=== PATIENT | male | born 1985 | race Caucasian/White ===

== ENCOUNTER 2019-03-18 13:43 | Emergency (ER) | payer SELFPAY ==
[2019-03-18] MEDS ORDERED: Sodium Chloride 0.9% 10 ML Syringe FLUSH PRN (14:10)
--- NOTE | 2019-03-18 14:23 | EDM.PDOC ---
ED HPI GENERAL MEDICAL PROBLEM - General Chief Complaint: Chest Pain Stated Complaint: CHEST PAIN/ LEFT ARM PAIN FOR 4 DAYS Time Seen by Provider: 03/18/19 14:03 Source of Information: Reports: Patient, RN Notes Reviewed - History of Present Illness INITIAL COMMENTS - FREE TEXT/NARRATIVE: 33-year-old male has been having chest pain off and on for about the past 5 days. This is become more severe and frequent yesterday and today. As this is an anterior pressure, tightness and heaviness times will radiate to the right shoulder and right arm and at other times to the left shoulder and left arm. He works at [employer] and with exertion and has been mildly more short of breath than typical. Does smoke, has a chronic cough but not coughing any more than usual. Some fever or chills. No history for hypertension diabetes or coronary artery disease. Chest Pain Score (Numeric/FACES): 3 - Related Data Allergies Allergy/AdvReac Type Severity Reaction Status Date / Time No Known Allergies Allergy Verified 08/14/14 09:17 Home Meds: Home Meds . [No Known Home Meds] 03/18/19 [History] Past Medical History - Past Health History Medical/Surgical History: Denies Medical/Surgical History - Past Surgical History HEENT Surgical History: Reports: Tonsillectomy Social & Family History - Family History Family Medical History: Noncontributory - Tobacco Use Smoking Status *Q: Current Every Day Smoker Years of Tobacco use: 20 Packs/Tins Daily: 0.7 - Caffeine Use Caffeine Use: Reports: Coffee, Energy Drinks, Soda, Tea - Recreational Drug Use Recreational Drug Use: No ED ROS GENERAL - Review of Systems Review Of Systems: See Below Constitutional: Denies: Fever, Chills, Diaphoresis HEENT: Denies: Throat Pain Respiratory: Reports: Shortness of Breath, Cough. Denies: Pleuritic Chest Pain (Exertional), Sputum (chronic) Cardiovascular: Reports: Chest Pain GI/Abdominal: Denies: Abdominal Pain, Nausea, Vomiting Musculoskeletal: Reports: Shoulder Pain, Arm Pain Skin: Denies: Rash Neurological: Reports: Numbness (Occasional left arm and right arm) ED EXAM, GENERAL - Physical Exam Exam: See Below General Appearance: Alert, No Apparent Distress Eye Exam: Bilateral Eye: PERRL Throat/Mouth: Normal Inspection, Normal Oropharynx Head: Atraumatic. No: Facial Swelling Neck: Supple, Full Range of Motion Respiratory/Chest: No Respiratory Distress, Lungs Clear, Normal Breath Sounds Cardiovascular: Regular Rate, Rhythm GI/Abdominal: Soft, Non-Tender Extremities: Normal Inspection, Normal Range of Motion. No: Pedal Edema, Leg Pain Neurological: Alert, Oriented, No Motor/Sensory Deficits Skin Exam: Warm, Dry, Normal Color EKG INTERPRETATION EKG Date: 03/18/19 Rhythm: Other (Sinus bradycardia at time of EKG, rate 48) [place]: Normal P-Wave: Present QRS: Normal ST-T: Normal Course - Vital Signs Last Recorded V/S: Last Vital Signs Temp 98.5 F 03/18/19 13:54 Pulse 71 03/18/19 13:54 Resp 20 03/18/19 13:54 BP 157/89 H 03/18/19 13:54 Pulse Ox 100 03/18/19 13:54 - Orders/Labs/Meds Orders: Active Orders 24 hr Category Date Time Status Peripheral IV Care [RC] . DIRECTED Care 03/18/19 14:11 Active Sodium Chloride 0.9% [Saline Flush] Med 03/18/19 14:10 Active 10 ml FLUSH ASDIRECTED PRN Peripheral IV Insertion Adult [OM.PC] Stat Oth 03/18/19 14:11 Ordered Medication Orders Sodium Chloride (Saline Flush) 10 ml FLUSH ASDIRECTED PRN PRN Reason: Keep Vein Open Last Admin: 03/18/19 14:05 Dose: 10 ml Labs: Laboratory Tests 03/18/19 03/18/19 Range/Units 14:25 14:25 WBC 9.49 H (4.23-9.07) K/mm3 RBC 5.46 (4.63-6.08) M/mm3 Hgb 15.8 (13.7-17.5) gm/L Hct 47.1 (40.1-51.0) % MCV 86.3 (79.0-92.2) fl MCH 28.9 (25.7-32.2) pg MCHC 33.5 (32.2-35.5) g/dl RDW Std Deviation 42.5 (35.1-43.9) fL Plt Count 206 (163-337) K/mm3 MPV 10.9 (9.4-12.3) fl Neut % (Auto) 67.2 (34.0-67.9) % Lymph % (Auto) 22.2 (21.8-53.1) % [place] % (Auto) 8.2 (5.3-12.2) % Eos % (Auto) 2.0 (0.8-7.0) Baso % (Auto) 0.3 (0.1-1.2) % Neut # (Auto) 6.37 H (1.78-5.38) K/mm3 Lymph # (Auto) 2.11 (1.32-3.57) K/mm3 [place] # (Auto) 0.78 (0.30-0.82) K/mm3 Eos # (Auto) 0.19 (0.04-0.54) K/mm3 Baso # (Auto) 0.03 (0.01-0.08) K/mm3 Sodium 142 (136-145) mEq/L Potassium 3.9 (3.5-5.1) mEq/L Chloride 104 (98-107) mEq/L Carbon Dioxide 28 (21-32) mEq/L Anion Gap 13.9 (5-15) BUN 18 (7-18) mg/dL Creatinine 1.1 (0.7-1.3) mg/dL Est Cr Clr Drug Dosing 71.79 mL/min Estimated GFR (MDRD) > 60 (>60) mL/min BUN/Creatinine Ratio 16.4 (14-18) Glucose 95 (74-106) mg/dL Calcium 9.4 (8.5-10.1) mg/dL Total Bilirubin 0.2 (0.2-1.0) mg/dL AST 24 (15-37) U/L ALT 29 (16-63) U/L Alkaline Phosphatase 90 (46-116) U/L Troponin I < 0.017 (0.00-0.056) ng/mL Total Protein 7.8 (6.4-8.2) g/dl Albumin 4.2 (3.4-5.0) g/dl Globulin 3.6 gm/dL Albumin/Globulin Ratio 1.2 (1-2) TSH 3rd Generation 2.787 (0.358-3.74) uIU/mL Meds: Medications Generic Name Dose Route Start Last Admin Trade Name Freq PRN Reason Stop Dose Admin Sodium Chloride 10 ml 03/18/19 14:10 03/18/19 14:05 Saline Flush FLUSH 10 ml ASDIRECTED PRN Administration Keep Vein Open - Re-Assessments/Exams Free Text/Narrative Re-Assessment/Exam: 03/18/19 15:21 Your heart and lungs checked out well today. Try hard to stop smoking. Try eat a healthy diet. Avoid heavy lifting for the remainder of this week as best you can. Follow-up clinic as needed, return to ED as needed if symptoms worsening in any way. Departure - Departure Time of Disposition: 15:22 Disposition: Home, Self-Care 01 Condition: Fair Clinical Impression: Atypical chest pain, Chest wall pain Referrals: PCP,None [Primary Care Provider] - Forms: ED Department Discharge - My Orders Last 24 Hours: My Active Orders 03/18/19 14:10 Sodium Chloride 0.9% [Saline Flush] 10 ml FLUSH ASDIRECTED PRN 03/18/19 14:11 Peripheral IV Care [RC] . DIRECTED Peripheral IV Insertion Adult [OM.PC] Stat - Assessment/Plan Last 24 Hours: My Active Orders 03/18/19 14:10 Sodium Chloride 0.9% [Saline Flush] 10 ml FLUSH ASDIRECTED PRN 03/18/19 14:11 Peripheral IV Care [RC] . DIRECTED Peripheral IV Insertion Adult [OM.PC] Stat
--- NOTE | 2019-03-18 14:41 | CR ---
Chest: Portable view of the chest was obtained. Comparison: No prior chest x-ray. Heart size and mediastinum are normal. Lungs are clear with no acute parenchymal change. Bony structures are unremarkable. Metallic BB is projected within the right axillary region. Impression: 1. Metallic BB as noted above. Nothing acute is seen. Diagnostic code #2
[2019-03-18 15:49] VITALS: BP 128/80
== END 2019-03-18 15:40 | disposition home or self-care (01) ==
LOC: JD.ED 13:43
DX: R07.89 Other chest pain (principal); F17.210 Nicotine dependence, cigarettes, uncomplicated
CPT/HCPCS: 36415; 71045; 71045-26; 80053; 84443; 84484; 85025; 93005; 93010; 99284; 99285-25

== ENCOUNTER 2020-01-22 18:28 | Emergency (ER) | payer SELFPAY ==
[2020-01-22 19:49] VITALS: BP 132/77; PULSE 87
[2020-01-22] MEDS ORDERED: Albuterol/Ipratropium 3.0-0.5 MG/3 ML Neb Soln NEB ONE (20:28)
--- NOTE | 2020-01-22 20:38 | EDM.PDOC ---
ED HPI GENERAL MEDICAL PROBLEM - General Chief Complaint: Respiratory Problem Stated Complaint: HEADACHE/ CHEST CONGESTION Time Seen by Provider: 01/22/20 20:00 Source of Information: Reports: Patient History Limitations: Reports: No Limitations - History of Present Illness INITIAL COMMENTS - FREE TEXT/NARRATIVE: This is a 34-year-old male. Onset with coughing and chest congestion and fever about 2 days ago. He says he has coughing fits where he cannot stop coughing and now his chest is really sore whenever he coughs or moves. He states he has had a fever though has not been documented. He indicates that his joints hurt. He apparently coughed up some dark blood one time and he coughed so hard that he will vomit. He has pain everywhere and he has a mild headache as well. He did not get a flu shot. He denies sore throat. He has had no nausea. He has been drinking water though not much of it. Chest Pain Score (Numeric/FACES): 9 Headache Pain Score (Numeric/FACES): 8 - Related Data Allergies Allergy/AdvReac Type Severity Reaction Status Date / Time No Known Allergies Allergy Verified 01/22/20 19:49 Home Meds: Home Meds . [No Known Home Meds] 03/18/19 [History] Past Medical History - Past Health History Medical/Surgical History: Denies Medical/Surgical History - Past Surgical History HEENT Surgical History: Reports: Tonsillectomy Social & Family History - Family History Family Medical History: Noncontributory - Tobacco Use Smoking Status *Q: Current Every Day Smoker Years of Tobacco use: 10 Packs/Tins Daily: 0.5 - Caffeine Use Caffeine Use: Reports: Coffee ED ROS GENERAL - Review of Systems Review Of Systems: See Below Constitutional: Reports: Fever, Chills, Malaise, Fatigue HEENT: Denies: Ear Pain, Rhinitis, Sinus Problem, Throat Pain, Throat Swelling Respiratory: Reports: Cough. Denies: Shortness of Breath, Wheezing Cardiovascular: Reports: Other (His ribs and chest are hurting from coughing) GI/Abdominal: Denies: Abdominal Pain, Diarrhea, Nausea, Vomiting Musculoskeletal: Reports: Other (Myalgias and arthralgias) Skin: Reports: No Symptoms Neurological: Reports: Headache. Denies: Trouble Speaking, Difficulty Walking Psychiatric: Reports: No Symptoms Hematologic/Lymphatic: Reports: No Symptoms ED EXAM, GENERAL - Physical Exam Exam: See Below Exam Limited By: No Limitations General Appearance: Alert, WD/WN, No Apparent Distress Eye Exam: Bilateral Eye: Normal Inspection Ears: Normal External Exam, Normal Canal, Normal TMs Nose: Normal Inspection. No: Nasal Drainage Throat/Mouth: Normal Inspection, Normal Lips, Normal Oropharynx, Normal Voice, No Airway Compromise Head: Normocephalic Neck: Supple, Non-Tender Respiratory/Chest: No Respiratory Distress, Lungs Clear, Normal Breath Sounds. No: Crackles, Rales, Rhonchi, Wheezing Cardiovascular: Regular Rate, Rhythm, No Murmur GI/Abdominal: Soft, Non-Tender Back Exam: Full Range of Motion, Other (Complains of his back aching) Extremities: Normal Inspection, Normal Range of Motion, Other (He states multiple joints hurt especially his hips) Neurological: Alert, Oriented Psychiatric: Normal Affect, Normal Mood Skin Exam: Warm, Dry Course - Vital Signs Last Recorded V/S: Last Vital Signs Temp 100.2 F 01/22/20 19:45 Pulse 87 01/22/20 19:45 Resp 18 01/22/20 19:45 BP 132/77 01/22/20 19:45 Pulse Ox 91 L 01/22/20 20:28 - Orders/Labs/Meds Orders: Active Orders 24 hr Category Date Time Status RT Aerosol Therapy [RC] ASDIRECTED Care 01/22/20 20:28 Active Chest 2V [CR] Stat Exams 01/22/20 20:27 Taken Labs: Laboratory Tests 01/22/20 01/22/20 Range/Units 20:37 20:37 WBC 6.43 (4.23-9.07) K/mm3 RBC 5.35 (4.63-6.08) M/mm3 Hgb 15.3 (13.7-17.5) gm/dl Hct 46.1 (40.1-51.0) % MCV 86.2 (79.0-92.2) fl MCH 28.6 (25.7-32.2) pg MCHC 33.2 (32.2-35.5) g/dl RDW Std Deviation 42.2 (35.1-43.9) fL Plt Count 149 L (163-337) K/mm3 MPV 11.4 (9.4-12.3) fl Neut % (Auto) 82.1 H (34.0-67.9) % Lymph % (Auto) 8.6 L (21.8-53.1) % [place] % (Auto) 8.6 (5.3-12.2) % Eos % (Auto) 0.3 L (0.8-7.0) Baso % (Auto) 0.2 (0.1-1.2) % Neut # (Auto) 5.29 (1.78-5.38) K/mm3 Lymph # (Auto) 0.55 L (1.32-3.57) K/mm3 [place] # (Auto) 0.55 (0.30-0.82) K/mm3 Eos # (Auto) 0.02 L (0.04-0.54) K/mm3 Baso # (Auto) 0.01 (0.01-0.08) K/mm3 Manual Slide Review Abnormal smear Sodium 141 (136-145) mEq/L Potassium 3.7 (3.5-5.1) mEq/L Chloride 103 (98-107) mEq/L Carbon Dioxide 23 (21-32) mEq/L Anion Gap 18.7 H (5-15) BUN 14 (7-18) mg/dL Creatinine 1.0 (0.7-1.3) mg/dL Est Cr Clr Drug Dosing 81.65 mL/min Estimated GFR (MDRD) > 60 (>60) mL/min BUN/Creatinine Ratio 14.0 (14-18) Glucose 100 (74-106) mg/dL Calcium 8.8 (8.5-10.1) mg/dL Total Bilirubin 0.3 (0.2-1.0) mg/dL AST 23 (15-37) U/L ALT 27 (16-63) U/L Alkaline Phosphatase 70 (46-116) U/L Total Protein 7.6 (6.4-8.2) g/dl Albumin 4.0 (3.4-5.0) g/dl Globulin 3.6 gm/dL Albumin/Globulin Ratio 1.1 (1-2) Meds: Medications Discontinued Medications Generic Name Dose Route Start Last Admin Trade Name Freq PRN Reason Stop Dose Admin Albuterol/Ipratropium 3 ml 01/22/20 20:28 01/22/20 20:42 Duoneb 3.0-0.5 Mg/3 Ml NEB 01/22/20 20:29 3 ml ONETIME ONE Administration - Re-Assessments/Exams Free Text/Narrative Re-Assessment/Exam: 01/22/20 22:51 Poke to the patient regarding his test results. Flu test was negative. His chest x-ray did not show any acute infiltrates. His blood work was essentially normal but he was slightly dry. The breathing treatment did seem to help his cough and breathing. I am going to provide a prescription for an inhaler as well as medicine for his cough. I gave him specific instructions to drink more fluids especially water at home to stay well-hydrated and I will give him a note for work for the next few days until he starts to feel better. I also encouraged him to take Tylenol and ibuprofen as needed for the aches and the pains and the low-grade fever. Departure - Departure Time of Disposition: 22:52 Disposition: Home, Self-Care 01 Condition: Fair Clinical Impression: Viral syndrome, Acute febrile illness, Cough - Discharge Information *PRESCRIPTION DRUG MONITORING PROGRAM REVIEWED*: Not Applicable *COPY OF PRESCRIPTION DRUG MONITORING REPORT IN PATIENT EVA: Not Applicable Instructions: Upper Respiratory Infection, Adult, [id number], Fever, Adult, [id number] Referrals: PCP,None [Primary Care Provider] - Forms: ED Department Discharge, ED Return to Work/School Form Additional Instructions: Home, sleep and rest as much as possible, take the medication as needed for your cough, use the inhaler when you feel like you are having a hard time breathing or if you hear any wheezing, take Tylenol and ibuprofen faithfully to help with the fever, you must drink lots of fluids like 6 to 8 glasses every day in order to stay hydrated so your body can fight the infection, return to the ER as needed and follow-up with your family doctor later this week for recheck. Sepsis Event Note - Evaluation Sepsis Screening Result: No Definite Risk - Focused Exam Vital Signs: Vital Signs Temp Pulse Resp BP Pulse Ox Pulse Ox 01/22/20 20:28 91 L 01/22/20 19:45 100.2 F 87 18 132/77 95 Date Exam was Performed: 01/22/20 Time Exam was Performed: 22:51 - My Orders Last 24 Hours: My Active Orders 01/22/20 20:27 Chest 2V [CR] Stat 01/22/20 20:28 RT Aerosol Therapy [RC] ASDIRECTED - Assessment/Plan Last 24 Hours: My Active Orders 01/22/20 20:27 Chest 2V [CR] Stat 01/22/20 20:28 RT Aerosol Therapy [RC] ASDIRECTED
--- NOTE | 2020-01-24 13:51 | CR ---
Chest: Two views of the chest were obtained. Comparison: Prior chest x-ray of 03/18/19. Stable nodules are noted within the chest. Lungs show no acute parenchymal change. Bony structures are within normal limits. Heart size and mediastinum are within normal limits. Impression: 1. Nodules within the chest believed to be stable and most likely representing granulomas. 2. Nothing acute is appreciated on two-view chest x-ray. Diagnostic code #2 Study was dictated in [place] Standard Time
== END 2020-01-22 23:09 | disposition home or self-care (01) ==
LOC: JD.ED 18:28
DX: B34.9 Viral infection, unspecified (principal); F17.210 Nicotine dependence, cigarettes, uncomplicated
CPT/HCPCS: 36415; 71046; 71046-26; 80053; 85025; 87804; 94640; 99283; 99284-25; J7620-GY

== ENCOUNTER 2020-03-21 03:32 | Emergency (ER) | payer SELFPAY ==
[2020-03-21 03:44] VITALS: BP 141/81; PULSE 79
--- NOTE | 2020-03-21 03:50 | EDM.PDOC ---
ED HPI GENERAL MEDICAL PROBLEM - General Chief Complaint: Lower Extremity Injury/Pain Stated Complaint: LEG AND HIP PAIN Time Seen by Provider: 03/21/20 03:38 Source of Information: Reports: Patient History Limitations: Reports: No Limitations - History of Present Illness INITIAL COMMENTS - FREE TEXT/NARRATIVE: TRIAGE NOTE -- pt c/o left sided hip pain radiating down the left leg. pt reports pain started Saturday, he went skateboarding on Saturday and fell a few times. pt walks into the ER with a limp. [ End ] As above. Patient fell onto his left hip area 2 days ago while skateboarding. He has had swelling lateral left hip as well as lumbar pain radiating to his left lower extremity. No treatment prior to arrival. Has not taken any medication or other measure to moderate symptoms. No risk factors other than cigarette smoking and skateboarding. There is been no fever respiratory symptoms or any other symptom of acute medical illness otherwise. Left Hip Pain Score (Numeric/FACES): 7 - Related Data Allergies Allergy/AdvReac Type Severity Reaction Status Date / Time No Known Allergies Allergy Verified 03/21/20 03:44 Home Meds: Home Meds . [No Known Home Meds] 03/18/19 [History] Past Medical History - Past Health History Medical/Surgical History: Denies Medical/Surgical History - Past Surgical History HEENT Surgical History: Reports: Tonsillectomy Social & Family History - Family History Family Medical History: Noncontributory - Tobacco Use Smoking Status *Q: Current Every Day Smoker - Caffeine Use Caffeine Use: Reports: Coffee Review of Systems - Review of Systems Review Of Systems: Comprehensive ROS is negative, except as noted in HPI. ED EXAM, GENERAL - Physical Exam Exam: See Below Exam Limited By: No Limitations General Appearance: Alert, WD/WN, No Apparent Distress Eye Exam: Bilateral Eye: EOMI, PERRL Ears: Normal External Exam Nose: Normal Inspection Throat/Mouth: Normal Inspection Head: Atraumatic, Normocephalic Neck: Supple, Non-Tender Respiratory/Chest: No Respiratory Distress, Lungs Clear, Normal Breath Sounds Cardiovascular: Regular Rate, Rhythm GI/Abdominal: Soft, Non-Tender Back Exam: Paraspinal Tenderness Extremities: Normal Inspection, Non-Tender, No Pedal Edema, Other (Quite thin not overtly wasted) Neurological: Alert, Oriented, Normal Cognition, No Motor/Sensory Deficits Psychiatric: Normal Affect, Normal Mood Skin Exam: Warm, Dry Course - Vital Signs Last Recorded V/S: Last Vital Signs Temp 36.2 C 03/21/20 03:39 Pulse 79 03/21/20 03:39 Resp 16 03/21/20 03:39 BP 141/81 H 03/21/20 03:39 Pulse Ox 97 03/21/20 03:39 - Orders/Labs/Meds Orders: Active Orders 24 hr Category Date Time Status Lumbar Spine wo Cont [CT] Stat Exams 03/21/20 03:44 Taken Pelvis wo Cont [CT] Stat Exams 03/21/20 03:44 Taken Ketorolac [Toradol] Med 03/21/20 04:51 Once 30 mg IM ONETIME ONE - Re-Assessments/Exams Free Text/Narrative Re-Assessment/Exam: 03/21/20 04:47 CT of the lumbar spine as well as pelvis was done figuring that if the patient had something that could be imaged it would probably be subtle. No acute findings and no significant findings in the imaging. No findings on exam other than the patient does have an anodyne gait. 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 Departure - Departure Time of Disposition: 04:49 Disposition: Home, Self-Care 01 Condition: Good Clinical Impression: Strain of muscle of multiple sites, Other skateboard accident, initial encounter - Discharge Information Referrals: PCP,None [Primary Care Provider] - Forms: ED Department Discharge Additional Instructions: You have been seen for an injury causing pain in your hip pelvis and low back from a skateboard accident a few days ago. We did CT scans that did not show any abnormality and no acute fracture dislocation or identifiable connective tissue injury. We are advising you to take today as well as the following 2 days off work to rest and recover from this. If on you cannot return to work because of pain or disability return to the ER for additional evaluation. Sepsis Event Note - Evaluation Sepsis Screening Result: No Definite Risk - Focused Exam Vital Signs: Vital Signs Temp Pulse Resp BP Pulse Ox 03/21/20 03:39 36.2 C 79 16 141/81 H 97 Date Exam was Performed: 03/21/20 Time Exam was Performed: 04:51 - My Orders Last 24 Hours: My Active Orders 03/21/20 03:44 Lumbar Spine wo Cont [CT] Stat Pelvis wo Cont [CT] Stat 03/21/20 04:51 Ketorolac [Toradol] 30 mg IM ONETIME ONE - Assessment/Plan Last 24 Hours: My Active Orders 03/21/20 03:44 Lumbar Spine wo Cont [CT] Stat Pelvis wo Cont [CT] Stat 03/21/20 04:51 Ketorolac [Toradol] 30 mg IM ONETIME ONE
[2020-03-21] MEDS ORDERED: Ketorolac 30 MG/ML SDV IM ONE (04:51)
--- NOTE | 2020-03-21 07:03 | CT ---
CT pelvis Technique: Multiple axial sections through the pelvis were obtained. Intravenous contrast was not utilized. Comparison: No prior pelvis exam is available. Findings: Sacroiliac joints appear within normal limits. Right and left hips appear within normal limits. No pelvic fracture is seen. No intrapelvic mass is noted. No free fluid or inflammatory change is seen within the pelvis. Impression: 1. Nothing acute is seen on CT study of the pelvis. Diagnostic code #1 This report was dictated in MDT I agree with preliminary report from [facility], finalized on 03/21/20, 5:34 AM [place] Day[employer] Time
--- NOTE | 2020-03-21 07:03 | CT ---
CT lumbar spine Technique: Multiple axial sections were obtained from above the T11 vertebral body inferiorly through the L5-S1 disc. Reconstructed sagittal and coronal images were reviewed. Vertebral body heights and disc spaces are maintained. Vertebral bodies and posterior arches are intact. No fracture is appreciated. No bony central or bony neural foraminal stenosis is seen. Posterior discs are contained. Impression: 1. Nothing acute is seen on CT study of the lumbar spine. Diagnostic code #1 This report was dictated in MDT I agree with preliminary report from [facility], finalized on 03/21/20, 1:58 AM [place] Day[employer] Time
== END 2020-03-21 05:05 | disposition home or self-care (01) ==
LOC: JD.ED 03:32
DX: S76.012A Strain of muscle, fascia and tendon of left hip, initial encounter (principal); F17.200 Nicotine dependence, unspecified, uncomplicated; V00.131A Fall from skateboard, initial encounter; Y93.51 Activity, roller skating (inline) and skateboarding
CPT/HCPCS: 72131; 72131-26; 72192; 72192-26; 99283-25

== ENCOUNTER 2020-11-14 04:44 | Emergency (ER) | payer BC ==
[2020-11-14 04:56] VITALS: BP 116/77; PULSE 70
[2020-11-14] MEDS ORDERED: Ketorolac 60 MG/2 ML SDV IM ONE (05:12)
--- NOTE | 2020-11-14 05:18 | EDM.PDOC ---
ED HPI GENERAL MEDICAL PROBLEM - General Chief Complaint: Neck Problem Stated Complaint: extreme neck pain Time Seen by Provider: 11/14/20 05:05 Source of Information: Reports: Patient History Limitations: Reports: No Limitations - History of Present Illness INITIAL COMMENTS - FREE TEXT/NARRATIVE: The patient presents with right neck pain and right shoulder pain. This is a chronic problem. He saw Dr King for it 3 months ago and had an MRI done of his cervical spine and shoulder. He has a torn labrum in his shoulder and he was told by Dr King that he has a ruptured disc. He will get pain from time to time. For the past 3 days he has been having more pain. He has no injury. He has no numbness or tingling in his arms. Onset: Gradual Duration: Day(s): Location: Reports: Neck, Upper Extremity, Right (shoulder) Quality: Reports: Sharp Severity: Severe Improves with: Reports: Immobilization Worsens with: Reports: Movement Context: Denies: Trauma Associated Symptoms: Reports: No Other Symptoms Right Neck Pain Score (Numeric/FACES): 6 - Related Data Allergies Allergy/AdvReac Type Severity Reaction Status Date / Time No Known Allergies Allergy Verified 11/14/20 04:55 Home Meds: Home Meds Naproxen Sodium [Aleve] 220 mg PO ASDIRECTED 08/11/20 [History] Past Medical History - Past Health History Medical/Surgical History: Denies Medical/Surgical History Neurological History: Reports: Other (See Below) Other Neuro History: ruptured disc - Past Surgical History HEENT Surgical History: Reports: Tonsillectomy Social & Family History - Family History Family Medical History: No Pertinent Family History - Tobacco Use Tobacco Use Status *Q: Current Every Day Tobacco User Years of Tobacco use: 15 Packs/Tins Daily: 0.7 - Caffeine Use Caffeine Use: Reports: Coffee - Recreational Drug Use Recreational Drug Use: No ED ROS GENERAL - Review of Systems Review Of Systems: See Below Constitutional: Reports: No Symptoms HEENT: Reports: No Symptoms Respiratory: Reports: No Symptoms Cardiovascular: Reports: No Symptoms Endocrine: Reports: No Symptoms GI/Abdominal: Reports: No Symptoms : Reports: No Symptoms Musculoskeletal: Reports: Shoulder Pain (right) ED EXAM, UPPER BACK/NECK PAIN - Physical Exam Exam: See Below Exam Limited By: No Limitations General Appearance: Alert, No Apparent Distress Ears Exam: Normal External Exam Nose Exam: Normal Inspection Throat/Mouth Exam: Normal Inspection Head Exam: Atraumatic, Normocephalic Neck Exam: Tender Lateral (right side) Cardiovascular/Respiratory: Regular Rate, Rhythm, No M/R/G, Normal Peripheral Pulses, Normal Breath Sounds, No Respiratory Distress GI/Abdominal: Normal Bowel Sounds, Soft, Non-Tender, No Organomegaly Extremities: Other (Pain upon palpation to the right shoulder) Neurologic: No Motor/Sensory Deficits, Alert, Normal Mood/Affect, Oriented x 3 Course - Vital Signs Last Recorded V/S: Last Vital Signs Temp 97.4 F 11/14/20 04:53 Pulse 70 11/14/20 04:53 Resp 16 11/14/20 04:53 BP 116/77 11/14/20 04:53 Pulse Ox 98 11/14/20 04:53 - Orders/Labs/Meds Orders: Active Orders 24 hr Category Date Time Status Ketorolac [Toradol] Med 11/14/20 05:12 Once 60 mg IM ONETIME ONE - Re-Assessments/Exams Free Text/Narrative Re-Assessment/Exam: 11/14/20 05:16 I ordered a shot of toradol. Departure - Departure Time of Disposition: 05:20 Disposition: Home, Self-Care 01 Condition: Good Clinical Impression: Neck pain on right side Right shoulder pain Qualifiers: Chronicity: chronic Qualified Code(s): M25.511 - Pain in right shoulder; G89.29 - Other chronic pain - Discharge Information *PRESCRIPTION DRUG MONITORING PROGRAM REVIEWED*: No *COPY OF PRESCRIPTION DRUG MONITORING REPORT IN PATIENT EVA: No Referrals: PCP,None [Primary Care Provider] - Eliud King DO [Physician] - 1 Week Forms: ED Department Discharge, ED Return to Work/School Form Additional Instructions: Take tylenol or motrin for pain. If that does not help try the flexeril and hydrocodone. Follow up with Dr King. Sepsis Event Note (ED) - Evaluation Sepsis Screening Result: No Definite Risk - Focused Exam Vital Signs: Vital Signs Temp Pulse Resp BP Pulse Ox 11/14/20 04:53 97.4 F 70 16 116/77 98 - My Orders Last 24 Hours: My Active Orders 11/14/20 05:12 Ketorolac [Toradol] 60 mg IM ONETIME ONE - Assessment/Plan Last 24 Hours: My Active Orders 11/14/20 05:12 Ketorolac [Toradol] 60 mg IM ONETIME ONE
== END 2020-11-14 05:35 | disposition home or self-care (01) ==
LOC: JD.ED 04:44
DX: M54.2 Cervicalgia (principal); M25.511 Pain in right shoulder; G89.29 Other chronic pain; F17.210 Nicotine dependence, cigarettes, uncomplicated
CPT/HCPCS: 96372; 99283; J1885

== ENCOUNTER 2021-10-24 01:05 | Emergency (ER) | payer BC ==
[2021-10-24 01:18] VITALS: BP 117/76; PULSE 65
[2021-10-24 02:13] LABS: CORONAVIRUS COVID-19 NAA NEGATIVE (NEGATIVE)
--- NOTE | 2021-10-24 02:15 | EDM.PDOC ---
ED HPI GENERAL MEDICAL PROBLEM - General Chief Complaint: Respiratory Problem Stated Complaint: SORE THROAT/CONGESTED/BODY PAIN Time Seen by Provider: 10/24/21 01:25 Source of Information: Reports: Patient, RN Notes Reviewed History Limitations: Reports: No Limitations - History of Present Illness INITIAL COMMENTS - FREE TEXT/NARRATIVE: Patient is a 36-year-old male with 2-day history of rhinorrhea, sore throat and congestion. He was at work tonight with the symptoms and instructed to come to the hospital for a return to work form. Patient reports symptoms are mild. He is not taking any medication for the symptoms. He denies any fevers, chills, difficulty breathing, difficulty swallowing, joint pains, muscle aches, loss of taste or smell, vomiting, diarrhea. He has no other complaints or concerns at this time. Just requesting a return to work form. - Related Data Allergies Allergy/AdvReac Type Severity Reaction Status Date / Time No Known Allergies Allergy Verified 10/24/21 01:13 Home Meds: Home Meds Naproxen Sodium [Aleve] 220 mg PO ASDIRECTED 08/11/20 [History] Past Medical History - Past Health History Medical/Surgical History: Denies Medical/Surgical History Neurological History: Reports: Other (See Below) Other Neuro History: ruptured disc - Past Surgical History HEENT Surgical History: Reports: Tonsillectomy Social & Family History - Family History Family Medical History: No Pertinent Family History - Tobacco Use Tobacco Use Status *Q: Unknown Ever Used Tobacco - Caffeine Use Caffeine Use: Reports: Coffee ED ROS GENERAL - Review of Systems Review Of Systems: See Below Free Text/Narrative/Comment: In addition to that documented in the HPI above, the additional ROS was obtained: Constitutional: Denies fevers or chills Eyes: Denies vision changes ENMT: per HPI CV: Denies chest pain Resp: Denies SOB GI: Denies vomiting or diarrhea : Denies painful urination MSK: Denies recent trauma Skin: Denies new rashes Neuro: Denies new numbness or tingling or weakness Endocrine: Denies unexpected weight loss Heme: Denies bleeding disorders ED EXAM, GENERAL - Physical Exam Exam: See Below Free Text/Narrative:: I have reviewed the triage vital signs Const: Well nourished, well developed, appears stated age Eyes: No proptosis, no conjunctival injection HENT: No signs of trauma or swelling, Neck supple without meningismus CV: Regular Rate Rhythm, Warm, well-perfused extremities RESP: Unlabored respiratory effort MSK: No gross deformities appreciated Skin: Warm, dry. 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 Sensation and motor function of extremities grossly intact. Psych: Appropriate mood and affect. Course - Vital Signs Last Recorded V/S: Last Vital Signs Temp 36.4 C 10/24/21 01:15 Pulse 65 10/24/21 01:15 Resp 15 10/24/21 01:15 BP 117/76 10/24/21 01:15 Pulse Ox 97 10/24/21 01:15 - Orders/Labs/Meds Labs: Laboratory Tests 10/24/21 Range/Units 01:26 Influenza Type A RNA Negative (NEGATIVE) Influenza Type B RNA Negative (NEGATIVE) SARS-CoV-2 RNA ([facility]) Negative (NEGATIVE) Departure - Departure Time of Disposition: 02:14 Disposition: Home, Self-Care 01 Clinical Impression: Viral upper respiratory tract infection - Discharge Information Instructions: Viral Respiratory Infection, [id number] Referrals: PCP,None [Primary Care Provider] - Forms: ED Department Discharge, ED Return to Work/School Form Additional Instructions: Take Tylenol and ibuprofen every 6-8 hours as needed for symptom relief. Return to the emergency room for difficulty breathing or any other emergent concerns. Sepsis Event Note (ED) - Evaluation Sepsis Screening Result: No Definite Risk - Focused Exam Vital Signs: Vital Signs Temp Pulse Resp BP Pulse Ox 10/24/21 01:15 36.4 C 65 15 117/76 97 - Assessment/Plan Assessment:: Patient is 36-year-old male with symptoms consistent with viral upper re spiratory tract infection. Nontoxic in appearance. No evidence of serious bacterial infection. Covid and influenza negative. Patient will be discharged with outpatient follow-up. Supportive care measures instructed. Patient discharged stable condition.
== END 2021-10-24 02:21 | disposition home or self-care (01) ==
LOC: JD.ED 01:05
DX: J06.9 Acute upper respiratory infection, unspecified (principal); Z20.822 Contact with and (suspected) exposure to COVID-19
CPT/HCPCS: 0240U; 99283

== ENCOUNTER 2023-07-25 10:30 | Emergency (ER) | payer BC ==
[2023-07-25 11:47] LABS: HEMATOCRIT 40.8 % (42.0-52.0); HEMOGLOBIN 13.3 gm/dl (14.0-18.0); MEAN CORPUSCULAR HEMOGLOBIN 28.8 pg (28.0-32.0); MEAN CORPUSCULAR HGB CONC 32.6 g/dl (32.0-36.0); MEAN CORPUSCULAR VOLUME 88.3 fl (83.0-99.0); MEAN PLATELET VOLUME 9.9 fl (9.4-12.4); PLATELET COUNT,PLT 179 K/mm3 (150-400); RED BLOOD CELL COUNT 4.62 M/mm3 (4.52-5.90); WHITE BLOOD CELL COUNT,WBC 11.87 K/mm3 (3.9-11.3)
[2023-07-25 12:05] LABS: A/G RATIO 0.7 (1-2); ALBUMIN 3.3 g/dl (3.4-5.0); ANION GAP 11.4 (5-15); BAND PERCENT MAN 8 % (0-10); BASOPHILS PERCENT MAN 0 (0.2-1.2); BILIRUBIN TOTAL 0.1 mg/dL (0.2-1.0); C-REACTIVE PROTEIN 5.1 mg/dL (<1.0); CALCIUM 8.9 mg/dL (8.5-10.1); CREATININE 0.8 mg/dL (0.7-1.3); EOSINOPHILS PERCENT MAN 0 % (0.8-7.0); EST CRCL DRUG DOSING (CG) 102.84 mL/min; LYMPHOCYTES % ATYPICAL MANUAL 0 %; LYMPHOCYTES PERCENT MAN 8 % (20-40); MONOCYTES PERCENT MAN 5 % (2-10); POTASSIUM,K 3.4 mEq/L (3.5-5.1); PROTEIN TOTAL,TP 7.8 g/dl (6.4-8.2)
[2023-07-25 12:07] LABS: ANISOCYTOSIS 1+ SLIGHT; PLATELET COUNT ESTIMATE ADEQUATE; TOXIC GRANULATION 1+ SLIGHT
[2023-07-25 13:21] LABS: APPEARANCE,URINE CLEAR (Clear); BILIRUBIN,URINE NEGATIVE (Negative); COLOR,URINE YELLOW (Yellow); GLUCOSE,URINE NEGATIVE (Negative); KETONES,URINE NEGATIVE (Negative); LEUKOCYTE ESTERASE,URINE NEGATIVE (Negative); NITRITE,URINE NEGATIVE (Negative); OCCULT BLOOD,URINE NEGATIVE (Negative); PROTEIN,URINE 1+ (Negative); UROBILINOGEN,URINE 0.2 (0.2-1.0)
[2023-07-25 13:58] LABS: BACTERIA,URINE FEW /hpf (FEW); EPITHELIAL CELLS,URINE 0-5 /hpf (0-5); MUCUS,URINE FEW /hpf (FEW); RBC,URINE 0-5 /hpf (0-5); WBC,URINE 0-5 /hpf (0-5)
[2023-07-25 14:29] VITALS: BP 145/85; PULSE 85
== END 2023-07-25 14:14 | disposition home or self-care (01) ==
LOC: JD.ED 10:30
DX: B34.9 Viral infection, unspecified (principal); Z72.0 Tobacco use; Z20.822 Contact with and (suspected) exposure to COVID-19
CPT/HCPCS: 36415; 80053; 81001; 85007; 85027; 86140; 87040; 87651-QW; 87804; 99283; U0002

== ENCOUNTER 2023-12-23 09:22 | Emergency (ER) | payer BC ==
[2023-12-23 10:39] LABS: CORONAVIRUS COVID-19 NAA NEGATIVE (NEGATIVE); INFLUENZA A NAA NEGATIVE (NEGATIVE); RESPIRATORY SYNCYTIAL VIR NAA NEGATIVE (NEGATIVE)
[2023-12-23] MEDS ORDERED: Lactated Ringers 1,000 ML IV SCH (11:30)
[2023-12-23 11:33] LABS: BASOPHILS PERCENT AUTO 0.3 % (0.0-1.0); EOSINOPHILS ABSOLUTE AUTO 0.1 K/mm3 (0.0-0.4); EOSINOPHILS PERCENT AUTO 0.6 % (0.0-6.0); HEMATOCRIT 47.4 % (42.0-52.0); IMMATURE GRAN ABSOLUTE AUTO 0.03 K/mm3 (0.00-0.05); IMMATURE GRAN PERCENT AUTO 0.3 % (0.0-0.4); LYMPHOCYTES ABSOLUTE AUTO 1.2 K/mm3 (1.0-4.8); LYMPHOCYTES PERCENT AUTO 11.2 % (24.0-44.0); MEAN CORPUSCULAR HEMOGLOBIN 28.4 pg (28.0-32.0); MEAN CORPUSCULAR HGB CONC 33.1 g/dl (32.0-36.0); MEAN CORPUSCULAR VOLUME 85.9 fl (83.0-99.0); MEAN PLATELET VOLUME 9.8 fl (9.4-12.4); MONOCYTES PERCENT AUTO 9.2 % (0.0-8.0); NEUTROPHILS ABSOLUTE AUTO 8.3 K/mm3 (1.8-7.7); NEUTROPHILS PERCENT AUTO 78.4 % (41.0-71.0); PLATELET COUNT,PLT 165 K/mm3 (150-400); RED BLOOD CELL COUNT 5.52 M/mm3 (4.52-5.90); WHITE BLOOD CELL COUNT,WBC 10.62 K/mm3 (3.9-11.3)
[2023-12-23 11:36] LABS: HEMOGLOBIN 15.7 gm/dl (14.0-18.0)
[2023-12-23 11:56] LABS: A/G RATIO 0.8 (1-2); ALANINE AMINOTRANSFERASE,ALT 27 U/L (16-63); ALBUMIN 3.5 g/dl (3.4-5.0); ALKALINE PHOSPHATASE 82 U/L (46-116); ANION GAP 15.7 (5-15); ASPARTATE AMNIOTRANSFERASE,AST 19 U/L (15-37); BILIRUBIN TOTAL 0.3 mg/dL (0.2-1.0); BLOOD UREA NITROGEN,BUN 18 mg/dL (7-18); CALCIUM 9.1 mg/dL (8.5-10.1); CARBON DIOXIDE,CO2 26 mEq/L (21-32); CHLORIDE,CL 99 mEq/L (98-107); ESTIMATED GFR 100 mL/min (>60); GLUCOSE RANDOM 92 mg/dL (70-99); LIPASE 30 U/L (16-77); POTASSIUM,K 3.7 mEq/L (3.5-5.1); PROTEIN TOTAL,TP 7.9 g/dl (6.4-8.2); SODIUM,NA 137 mEq/L (136-145); TROPONIN I HIGH SENSITIVITY 7 pg/mL (<=76)
[2023-12-23 12:01] LABS: SLIDE REVIEW NORMAL SMEAR
[2023-12-23] MEDS: Iopamidol 755 Mg/ML 100 ML Bottle IVPUSH ONE (12:10)
[2023-12-23] MEDS: Sodium Chloride 0.9% 10 ML Syringe FLUSH PRN (12:12)
[2023-12-23] MEDS: Sodium Chloride 0.9% 100 ML IV SCH (12:12)
[2023-12-23] MEDS: Ondansetron 4 MG Tab.DIS PO ONE (13:05)
[2023-12-23 13:10] VITALS: BP 123/79; PULSE 86
== END 2023-12-23 13:11 | disposition home or self-care (01) ==
LOC: JD.ED 09:22
DX: J39.9 Disease of upper respiratory tract, unspecified (principal); Z86.16 Personal history of COVID-19
CPT/HCPCS: 0241U; 36415; 71045; 71275; 80053; 83690; 84484; 85025; 85379; 93005; 99285; J3490; Q9967; 93010; 99284

== ENCOUNTER 2025-07-31 18:28 | Emergency (ER) | payer BC ==
[2025-07-31 20:01] VITALS: BP 110/73; PULSE 76
== END 2025-07-31 19:15 | disposition home or self-care (01) ==
LOC: JD.ED 18:28
DX: N48.22 Cellulitis of corpus cavernosum and penis (principal); Z86.16 Personal history of COVID-19
CPT/HCPCS: 99283